=== PATIENT | female | born 1940 | race Caucasian/White ===

== ENCOUNTER → 2016-11-09 | Outpatient (CLI) | payer MEDICARE ==
[~2016-11-09] VITALS: Ht 170.2 cm; Wt 97.3 kg
[~2016-11-09] MED LIST: ALPR.5 PO; ALPR0.5T99 PO; AMLO5CAP PO; AMLO5TAB22 PO; CARV25TA PO; CRAN450T PO; D31000TA PO; D32000TA PO; EZET10 PO; FENO35TA PO; FOSI20 PO; FOSI40TA PO; FURO1TAB60 PO; FURO1TAB93 PO; IMIP50 PO; INSULIN HUMAN REGULAR 1,000 UNITS/10 ML VIAL SQ PRN; K-TA10TA PO; K-TA10TA5 PO; LACTATED RINGER'S 1000 ML IV SCH; LEVO-154 PO; LEVO175T2 PO; METF-324 PO; METF1000 PO; METOPROLOL TARTRATE 25 MG TAB PO PRN; PROBCAP4 PO; PROPOFOL 200 MG/20 ML AMP IV ONE; RANI150T PO; SODIUM CHLORID 0.9% 500 ML IV SCH; TOFR50TA PO; VITA-13 PO; VITA5000 PO; Z.0.OXYGEN INH; ZETI10TA5 PO; ZOCO80TA PO; [UNRECOGNIZED DRUG - CODE] SQ
[2016-11-09 09:54] VITALS: BP 150/81; PULSE 63; RESP 20; TEMP 98.1; O2SAT 98
[2016-11-09 11:52] VITALS: TEMP 97.6
--- NOTE | 2016-11-09 11:52 | GIPROC ---
[facility] [address] [facility]. [facility], [address] EGD PROCEDURE REPORT EXAM DATE: 11/09/2016 PATIENT NAME: Olya Zhou MR #: [id number] BIRTHDATE: 1940 ATTENDING: Saleem Estes MD ORDER #: [id number] SURVEILLANCE INVESTIGATOR: Hans Shaikh and Jefferson Avina STATUS: outpatient INDICATIONS: The patient is a 76 yr old female here for an EGD due to history of Coker's esophagus and history of esophageal reflux PROCEDURE PERFORMED: EGD w/ biopsy MEDICATIONS: None and Per Anesthesia. TOPICAL ANESTHETIC: CONSENT: The patient understands the risks and benefits of the procedure and understands that these risks include, but are not limited to: sedation, allergic reaction, infection, perforation and/or bleeding. Alternative means of evaluation and treatment include, among others: physical exam, x-rays, and/or surgical intervention. The patient elects to proceed with this endoscopic procedure. medical equipment was checked for proper function. Hand hygiene and appropriate measures for infection prevention was taken. After the risks, benefits and alternatives of the procedure were thoroughly explained, Informed consent was verified, confirmed and timeout was successfully executed by the treatment team. The patient was anesthetized with topical anesthesia and the EC-3490Li (Pedi C) endoscope was introduced through the mouth and advanced to the second portion of the duodenum. Retroflexed views revealed a hiatal hernia The gastroscope was then slowly withdrawn and removed. 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 The length of circumferential Coker's was 1cm (Bovey C1). There was no nodular mucosa noted in the Coker's segment. Multiple biopsies were performed using cold forceps. Sample sent for histology. STOMACH: There was erythematous moderate gastritis in the gastric antrum. Multiple semi-pedunculated polyps ranging between 3-5mm in size were found in the gastric fundus. ADVERSE EVENTS: There were no complications. IMPRESSIONS: 1. 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 There was erythematous gastritis in the gastric antrum 3. Retroflexed views revealed a hiatal hernia RECOMMENDATIONS: 1. Await biopsy results. Biopsy results will not be ready for 7-10 days. If you don't hear from us in two weeks, call our office for biopsy results. 2. Anti-reflux regimen 3. Continue PPI 4. Avoid NSAIDS PATIENT CONDITION: stable DISPOSITION: Home REPEAT EXAM: Return 1 year EGD pending biopsy results Saleem Estes MD eSigned: Saleem Estes MD 11/09/2016 11:51 AM cc: Leeroy Edmond M.D. PATIENT NAME: Olya Zhou MR#: [id number]
--- NOTE | 2016-11-09 11:57 | GIPROC ---
[facility] [address] [facility]. [facility], [address] COLONOSCOPY PROCEDURE REPORT EXAM DATE: 11/09/2016 PATIENT NAME: Olya Zhou MR #: [id number] BIRTHDATE: 1940 ENDOSCOPIST: Saleem Estes MD ORDER #: [id number] APPETIZER PACKER: Hans Shaikh and Jordan Dash STATUS: outpatient INDICATIONS: The patient is a 76 yr old female here for a colonoscopy due to follow up of adenomatous colonic polyp(s) Colonoscopy with ablation MEDICATIONS: None and Per Anesthesia. PREP QUALITY: The [place] Bowel Prep Score was Right colon 1, Mid colon 2, and Left colon 2. Total = 5. PREP TYPE:GoLytely ESTIMATED BLOOD LOSS: None CONSENT: The patient understands the risks and benefits of the procedure and understands that these risks include, but are not limited to: sedation, allergic reaction, infection, perforation and/or bleeding. Alternative means of evaluation and treatment include, among others: physical exam, x-rays, and/or surgical intervention. The patient elects to proceed with this endoscopic procedure. medical equipment was checked for proper function. Hand hygiene and appropriate measures for infection prevention was taken. After the risks, benefits and alternatives of the procedure were thoroughly explained, Informed consent was verified, confirmed and timeout was successfully executed by the treatment team. A digital exam revealed external hemorrhoids The Pentax EC-3490Li, New [id number] (Std Gastro), and [id number] endoscope was introduced through the anus and advanced to the cecum, which was identified by both the appendix and ileocecal valve. The instrument was then slowly withdrawn as the colon was fully examined. COLON FINDINGS: There was severe diverticulosis noted in the sigmoid colon with associated tortuosity and inflammatory changes. Biopsied. Multiple polypoid shaped sessile polyps ranging between 5-9mm in size were found in the ascending colon. Multiple biopsies were performed using cold forceps. Thermal therapy was used to destroy tumor/mass. A polypoid shaped sessile polyp ranging between 3-7mm in size was found in the transverse colon. A polypectomy was performed using snare cautery. The resection was complete and the polyp tissue was completely retrieved. Two polypoid shaped polyps measuring 10 mm in size were found in the rectum. A polypectomy was performed using snare cautery. The resection was incomplete and the polyp tissue was completely retrieved. Retroflexed views revealed internal hemorrhoids and Retroflexed views revealed medium internal hemorrhoids The scope was then completely withdrawn from the patient and the procedure terminated. PROCEDURE WITHDRAWAL TIME:15minutes ADVERSE EVENTS: There were no complications. IMPRESSIONS: 1. There was severe diverticulosis noted in the sigmoid colon 2. Biopsied 3. Multiple sessile polyps ranging between 5-9mm in size were found in the ascending colon; multiple biopsies were performed using cold forceps 4. A sessile polyp ranging between 3-7mm in size was found in the transverse colon; polypectomy was performed using snare cautery 5. Two polyps were found in the rectum; polypectomy was performed using snare cautery 6. Retroflexed views revealed internal hemorrhoids 7. Retroflexed views revealed medium internal hemorrhoids 8. Revealed external hemorrhoids RECOMMENDATIONS: 1. Await biopsy results. Biopsy results will not be ready for 7-10 days. If you don't hear from us in two weeks, call our office for results. 2. Benefiber 2 tsp daily 3. Continue surveillance 4. Yearly hemoccult 5. No seeds, nuts and popcorn in diet RECALL: Return 6 months Colonoscopy, pending biopsy results Saleem Estes MD eSigned: Saleem Estes MD 11/09/2016 11:56 AM cc: Leeroy Edmond M.D. PATIENT NAME: Olya Zhou MR#: [id number]
[2016-11-09 12:10] VITALS: BP 127/55; PULSE 66; RESP 16; O2SAT 95
--- NOTE | 2016-11-09 19:36 | EKG ---
Date Performed: 11/09/2016 Time Performed: 09:30:29 PTAGE: 76 years EKG: Sinus rhythm RIGHT BUNDLE BRANCH BLOCK SEPTAL Q WAVES ABNORMAL ECG PREVIOUS TRACING : 11/09/2016 09.28 Compared to the previous tracing rate faster DOCTOR: Ramnadeep Montero Interpretating Date/Time 11/09/2016 19:35:54
== END ==
LOC: HEND 08:12
PROVIDERS: ATTEND Internal Medicine Gastroenterology
DX: Z12.11 Encounter for screening for malignant neoplasm of colon (principal); Z86.010 Personal history of colon polyps; D12.2 Benign neoplasm of ascending colon; D12.3 Benign neoplasm of transverse colon; K62.1 Rectal polyp; K57.30 Diverticulosis of large intestine without perforation or abscess without bleeding; K64.4 Residual hemorrhoidal skin tags; K64.8 Other hemorrhoids; K22.70 Barrett's esophagus without dysplasia; K31.7 Polyp of stomach and duodenum; K44.9 Diaphragmatic hernia without obstruction or gangrene; R94.31 Abnormal electrocardiogram [ECG] [EKG]
CPT/HCPCS: 88305; 88312; 93005

== ENCOUNTER → 2017-05-15 | Day surgery (SDC) | payer MEDICARE ==
[~2017-05-15] MED LIST changes: -ALPR0.5T99 PO; -AMLO5TAB22 PO; -CRAN450T PO; -EZET10 PO; -FENO35TA PO; -FOSI20 PO; -FURO1TAB93 PO; -IMIP50 PO; -INSULIN HUMAN REGULAR 1,000 UNITS/10 ML VIAL SQ PRN; -K-TA10TA5 PO; +LACTATED RINGER'S 1000 ML INJ 1,000 ML ONE; -LACTATED RINGER'S 1000 ML IV SCH; -LEVO175T2 PO; -METF-324 PO; -METOPROLOL TARTRATE 25 MG TAB PO PRN; -PROBCAP4 PO; -PROPOFOL 200 MG/20 ML AMP IV ONE; +PROPOFOL 500 MG/50 ML BTL IV ONE; -SODIUM CHLORID 0.9% 500 ML IV SCH; -VITA-13 PO; -VITA5000 PO; -Z.0.OXYGEN INH
--- NOTE | 2017-05-15 15:25 | GIPROC ---
[facility] [address] [facility], [address] COLONOSCOPY PROCEDURE REPORT EXAM DATE: 05/15/2017 PATIENT NAME: Olya Zhou MR #: [id number] BIRTHDATE: 1940 ENDOSCOPIST: Saleem Estes MD ORDER #: [id number] JEWEL BEARING FACER: Hailey Rodriguez RN STATUS: outpatient INDICATIONS: The patient is a 77 yr old female here for a colonoscopy due to high risk patient with personal history of colonic polyps PROCEDURE PERFORMED: Colonoscopy with ablation MEDICATIONS: None and Per Anesthesia. PREP QUALITY: The [place] Bowel Prep Score was Right colon 2, Mid colon 2, and Left colon 3. Total = 7. ESTIMATED BLOOD LOSS: None CONSENT: The patient understands the risks and benefits of the procedure and understands that these risks include, but are not limited to: sedation, allergic reaction, infection, perforation and/or bleeding. Alternative means of evaluation and treatment include, among others: physical exam, x-rays, and/or surgical intervention. The patient elects to proceed with this endoscopic procedure. medical equipment was checked for proper function. Hand hygiene and appropriate measures for infection prevention was taken. After the risks, benefits and alternatives of the procedure were thoroughly explained, Informed consent was verified, confirmed and timeout was successfully executed by the treatment team. A digital exam revealed external hemorrhoids The EC-3890Li ([id number]) endoscope was introduced through the anus and advanced to the cecum, which was identified by both the appendix and ileocecal valve. The instrument was then slowly withdrawn as the colon was fully examined. COLON FINDINGS: Severe diverticulosis was noted in the sigmoid colon. No bleeding was noted from the diverticulosis. A polypoid shaped flat polyp ranging between 3-7mm in size was found in the ascending colon. A polypectomy was performed using snare cautery. The resection was complete and the polyp tissue was completely retrieved. A polypoid shaped sessile polyp measuring 10 mm in size was found in the rectum. A polypectomy was performed using snare cautery. The resection was incomplete and the polyp tissue was completely retrieved. Destruction of tumor/mass via ablation was attempted. Bleeding from maneuver treated with cautery. Retroflexed views revealed internal hemorrhoids and Retroflexed views revealed medium internal hemorrhoids The scope was then completely withdrawn from the patient and the procedure terminated. PROCEDURE WITHDRAWAL TIME:13minutes ADVERSE EVENTS: There were no complications. IMPRESSIONS: 1. Severe diverticulosis was noted in the sigmoid colon 2. A flat polyp ranging between 3-7mm in size was found in the ascending colon; polypectomy was performed using snare cautery 3. A sessile polyp was found in the rectum; polypectomy was performed using snare cautery; Destruction of tumor/mass via ablation was attempted 4. Retroflexed views revealed internal hemorrhoids 5. Retroflexed views revealed medium internal hemorrhoids 6. Revealed external hemorrhoids RECOMMENDATIONS: 1. Await biopsy results. Biopsy results will not be ready for 7-10 days. If you don't hear from us in two weeks, call our office for results. 2. Benefiber 2 tsp daily 3. Continue surveillance 4. Yearly hemoccult 5. High fiber diet 6. No seeds, nuts and popcorn in diet RECALL: 1. Return 1 year Colonoscopy, pending biopsy results 2. Return 6 months Flexible Sigmoidoscopy Saleem Estes MD eSigned: Saleem Estes MD 05/15/2017 3:25 PM cc: [facility] and Leeroy Edmond M.D. PATIENT NAME: Olya Zhou MR#: [id number]
== END | disposition home or self-care (01) ==
LOC: ESDC 13:25
PROVIDERS: ATTEND Internal Medicine Gastroenterology
DX: Z12.11 Encounter for screening for malignant neoplasm of colon (principal); Z86.010 Personal history of colon polyps; K64.4 Residual hemorrhoidal skin tags; K57.90 Diverticulosis of intestine, part unspecified, without perforation or abscess without bleeding; D12.2 Benign neoplasm of ascending colon; D37.5 Neoplasm of uncertain behavior of rectum; K64.8 Other hemorrhoids
CPT/HCPCS: 00810; 45385; 45388; 88305; J7120